=== PATIENT | male | born 1995 | race Caucasian/White ===

== ENCOUNTER 2021-08-22 09:37 | Emergency (ER) | payer MEDICAID ==
[~2021-08-22] VITALS: Ht 162.6 cm; Wt 80.0 kg
[2021-08-22] MEDS: RISPERIDONE 1MG TABLET PO SCH ×2 (11:20→21:15)
[2021-08-22] MEDS: DIVALPROEX SODIUM 250MG DR TABLET PO SCH ×2 (11:20→21:14)
[2021-08-22 11:43] LABS: HEMATOCRIT. 53.7 % (42.0-52.0); HEMOGLOBIN. 18.1 g/dL (14.0-18.0); MEAN CORPUSCULAR HEMOGLOBIN 30.2 pg (28.0-32.0); MEAN CORPUSCULAR VOLUME 89.8 fL (80.0-94.0); MEAN PLATELET VOLUME 8.4 fl (7.4-10.4); PLATELET 328 x1000/uL (130-400); RED BLOOD CELL COUNT 5.98 mill/uL (4.7-6.1); RED CELL DISTRIBUTION WIDTH 12.9 % (11.6-14.6)
[2021-08-22 11:46] LABS: CLARITY URINE CLEAR (CLEAR); COLOR URINE YELLOW (YELLOW); KETONES URINE TRACE (NEGATIVE); LEUKOCYTE ESTERASE URINE NEGATIVE (NEGATIVE); NITRITE URINE NEGATIVE (NEGATIVE); OCCULT BLOOD URINE NEGATIVE (NEGATIVE); PH URINE 5.5 (4.5-8.0); PROTEIN URINE 1+ (NEGATIVE); SPECIFIC GRAVITY URINE 1.025 (1.005-1.030); UROBILINOGEN URINE 0.2 E.U./dL (0.2-1.0)
[2021-08-22 11:52] LABS: CHLORIDE 104 mEq/L (98-107)
[2021-08-22 11:56] LABS: ETHANOL BLOOD < 10 mg/dL
[2021-08-22 12:08] LABS: CANNABINOID URINE SCREEN NEGATIVE (NEGATIVE)
[2021-08-22 12:09] LABS: *AMPHETAMINES SCREEN URINE NEGATIVE (NEGATIVE); *BARBITURATES SCREEN URINE NEGATIVE (NEGATIVE); *COCAINE SCREEN URINE NEGATIVE (NEGATIVE); METHADONE URINE SCREEN NEGATIVE (NEGATIVE); OPIATES URINE SCREEN NEGATIVE (NEGATIVE); PHENCYCLIDINE URINE SCREEN NEGATIVE (NEGATIVE)
[2021-08-22 12:10] LABS: *BENZODIAZEPINES SCREEN URINE NEGATIVE (NEGATIVE)
[2021-08-22 12:12] LABS: PLATELET ESTIMATE NORMAL
[2021-08-23] MEDS: RISPERIDONE 1MG TABLET PO SCH ×2 (08:57→21:00)
[2021-08-23] MEDS: DIVALPROEX SODIUM 250MG DR TABLET PO SCH ×2 (08:57→21:00)
[2021-08-24] MEDS: RISPERIDONE 1MG TABLET PO SCH (09:51)
[2021-08-24] MEDS: DIVALPROEX SODIUM 250MG DR TABLET PO SCH (09:51)
[2021-08-24 18:22] VITALS: BP 148/81
== END 2021-08-24 18:34 | disposition short-term general hospital (02) ==
LOC: ER 09:54
DX: F20.9 Schizophrenia, unspecified (principal); R45.851 Suicidal ideations; Z75.1 Person awaiting admission to adequate facility elsewhere; Z20.822 Contact with and (suspected) exposure to COVID-19; F10.10 Alcohol abuse, uncomplicated; Y90.0 Blood alcohol level of less than 20 mg/100 ml
CPT/HCPCS: 36415; 80053; 80305; 80307; 80320; 80329; 81003; 82962; 85025; 99285; C9803; U0003; U0005; G0480